=== PATIENT | female | born 1970 ===

== ENCOUNTER 2023-10-31 01:25 | Emergency (ER) | payer OTHER ==
[2023-10-31] MEDS ORDERED: LORazepam 1 MG TAB ONE (02:41)
[2023-10-31] MEDS ORDERED: SODIUM CHLORIDE 0.9% 1,000 ML BAG ONE (04:03)
--- NOTE | 2023-12-06 12:54 | XR ---
Patient: Erasmo Clement Ordering Physician: Unknown, Unknown ID: [id number] Phone, Pager: Phon e: N/A Pager: N/A : 01/28/1967 Age/Gender: 56Y, M Primary Location: N/A Procedure: XR CHEST 2V Stud y Date: 10/31/2023 3:11:00 AM EXAMINATION TYPE: XR chest 2V DATE OF EXAM: 11/14/2023 11:51 AM CLINICAL INDICATION: Chest pain COMPARISON: None TECHNIQUE: XR chest 2V Frontal view of the chest. FINDINGS: Lungs/Pleura: There is no evidence of pleural effusion, focal consolidation, or pneumothorax. Pulmonary vascularity: Unremarkable. Heart/mediastinum: Cardiomediastinal silhouette is unremarkable. Musculoskeletal: No acute osseous pathology. IMPRESSION: No acute cardiopulmonary disease/process.
== END 2023-10-31 06:55 | disposition home or self-care (01) ==
LOC: EC 01:25
CPT/HCPCS: 71046; 93005; 96374; 99285